=== PATIENT | male | born 1970 | race Caucasian/White ===

== ENCOUNTER → 2020-01-01 | Outpatient (CLI) | payer OTHER ==
--- NOTE | 2020-01-01 13:49 | XR ---
Left knee HISTORY: Chronic left knee pain 2 views the left knee Bone mineralization, joint spaces and alignment are maintained. There is minimal spurring at the portillo llofemoral joint,, some slight remodeling present at the medial femoral condyle. There is no evident joint effusion. Vascular calcifications are suspected within the leg. No fracture or dislocation. IMPRESSION: Mild osteoarthritis is suspected.
== END | disposition home or self-care (01) ==
LOC: RADXRMAIN 12:25
PROVIDERS: ATTEND Family Medicine
DX: M25.562 Pain in left knee (principal)